=== PATIENT | female | born 2000 | race Caucasian/White ===

== ENCOUNTER 2019-10-24 07:54 | Inpatient (IN) | payer MEDICAID ==
[2019-10-23] MEDS: LACTATED RINGERS 1,000 ML IV SCH (09:00)
[~2019-10-24] VITALS: Ht 167.6 cm; Wt 83.9 kg
[2019-10-24] MEDS ORDERED: BUTORPHANOL TARTRATE 2 MG/ML VIAL IV PRN (09:15)
[2019-10-24] MEDS ORDERED: CARBOPROST TROMETHAMINE 250 MCG/ML AMPUL IM PRN (09:15)
[2019-10-24] MEDS ORDERED: LIDOCAINE HCL 1% 20ML VIAL (Pyxis) INJ INFIL SCH (09:15)
[2019-10-24] MEDS ORDERED: NALOXONE HCL 0.4 MG/ML 1ML VIAL IM PRN (09:15)
[2019-10-24] MEDS ORDERED: METHYLERGONOVINE MALEATE 0.2 MG/ML IM PRN (09:15)
[2019-10-24] MEDS ORDERED: MISOPROSTOL 100MCG TABLET VG SCH (09:15)
[2019-10-24 09:41] LABS: BASOPHILS % 0.1 % (0.0-2.0); CLARITY URINE CLOUDY (CLEAR); COLOR URINE YELLOW (YELLOW); EOSINOPHILS % 0.6 % (0.0-5.0); HEMATOCRIT. 34.2 % (36.0-48.0); HEMOGLOBIN. 11.8 g/dL (12.0-16.0); KETONES URINE NEGATIVE (NEGATIVE); LEUKOCYTE ESTERASE URINE 3+ (NEGATIVE); LYMPHOCYTES % 18.6 % (20.0-50.0); MEAN CORPUSCULAR HEMOGLOBIN 31.6 pg (28.0-32.0); MEAN CORPUSCULAR VOLUME 91.5 fL (81.0-99.0); MEAN PLATELET VOLUME 8.5 fl (7.4-10.4); NEUTROPHILS % 71.7 % (40.0-76.0); NITRITE URINE NEGATIVE (NEGATIVE); OCCULT BLOOD URINE NEGATIVE (NEGATIVE); PLATELET 220 x1000/uL (130-400); PROTEIN URINE 1+ (NEGATIVE); RED BLOOD CELL COUNT 3.73 mill/uL (4.2-5.4); RED CELL DISTRIBUTION WIDTH 13.5 % (11.6-14.6); SPECIFIC GRAVITY URINE 1.021 (1.005-1.030)
[2019-10-24] MEDS ORDERED: ROPIVACAINE HCL/PF EPIDURAL 200 ML EPI SCH (09:45)
[2019-10-24 09:57] LABS: *BARBITURATES SCREEN URINE NEGATIVE (NEGATIVE); *BENZODIAZEPINES SCREEN URINE NEGATIVE (NEGATIVE); *COCAINE SCREEN URINE NEGATIVE (NEGATIVE); METHADONE URINE SCREEN NEGATIVE (NEGATIVE); OPIATES URINE SCREEN NEGATIVE (NEGATIVE); PHENCYCLIDINE URINE SCREEN NEGATIVE (NEGATIVE)
[2019-10-24 09:58] LABS: *AMPHETAMINES SCREEN URINE NEGATIVE (NEGATIVE); CANNABINOID URINE SCREEN NEGATIVE (NEGATIVE)
[2019-10-24] MEDS: DEXT 5%/LR + PITOCIN 20UNITS/L 1,000 ML IV SCH (10:59)
[2019-10-24 11:28] LABS: INR 0.9; PARTIAL THROMBOPLASTIN TIME 24.5 sec (23.4-31.0); PROTHROMBIN TIME 9.6 sec (9.6-11.0)
[2019-10-24] MEDS: GUAIFENESIN/CODEINE 200-20MG/10ML UDC PO PRN ×2 (11:56→20:51)
[2019-10-24] MEDS: LACTATED RINGERS 1,000 ML IV SCH (21:00)
[2019-10-25] MEDS: LACTATED RINGERS 1,000 ML IV SCH (04:00)
[2019-10-25] MEDS: GUAIFENESIN/CODEINE 200-20MG/10ML UDC PO PRN (05:39)
[2019-10-25] MEDS ORDERED: ROPIVACAINE HCL/PF EPIDURAL 200 ML EPI ONE (08:18)
[2019-10-25] MEDS ORDERED: FENTANYL CITRATE/PF 50MCG/ML 2ML VIAL ONE (08:20)
[2019-10-25] MEDS ORDERED: DEXT 5%/LR + PITOCIN 20UNITS/L 1,000 ML IV SCH (11:57)
[2019-10-25] MEDS ORDERED: IBUPROFEN 400MG TABLET PO PRN (12:00)
[2019-10-25] MEDS ORDERED: HEMORRHOIDAL SUPP PR PRN (12:00)
[2019-10-25] MEDS ORDERED: BISACODYL 10MG SUPP PR PRN (12:00)
[2019-10-25] MEDS ORDERED: GLYCERIN/WITCH HAZEL LEAF MEDICATED PAD TOP PRN (12:00)
[2019-10-25] MEDS ORDERED: ACETAMINOPHEN WITH CODEINE 300/30MG TABLET PO PRN ×2 (12:00)
[2019-10-25] MEDS: DEXT 5%/LR + PITOCIN 20UNITS/L 1,000 ML IV SCH (12:52)
[2019-10-25 15:00] VITALS: BP 124/81
[2019-10-25] MEDS ORDERED: MVI, ADULT NO.1 10 ML in LACTATED RINGERS 1,000 ML IV SCH ×2 (15:00)
[2019-10-25] MEDS ORDERED: LIDOCAINE HCL 2%/EPINEPHRINE 1:100,000 20 ML VIAL INFIL ONE (16:02)
[2019-10-25 16:16] VITALS: BP 129/73
[2019-10-25 20:00] VITALS: BP 119/69
[2019-10-25] MEDS ORDERED: FLUCONAZOLE 150MG TABLET PO NR (20:00)
[2019-10-25] MEDS: OSELTAMIVIR 75MG CAPSULE PO SCH (20:56)
[2019-10-25] MEDS: SIMETHICONE 80MG TABLET CHEW PO SCH (20:58)
[2019-10-25] MEDS: DOCUSATE SODIUM 100MG CAPSULE PO SCH (20:59)
[2019-10-26 04:00] VITALS: BP 117/80
[2019-10-26 06:01] LABS: BASOPHILS % 0.1 % (0.0-2.0); EOSINOPHILS % 0.4 % (0.0-5.0); HEMATOCRIT. 30.3 % (36.0-48.0); HEMOGLOBIN. 10.3 g/dL (12.0-16.0); LYMPHOCYTES % 11.7 % (20.0-50.0); MEAN CORPUSCULAR HEMOGLOBIN 31.1 pg (28.0-32.0); MEAN CORPUSCULAR VOLUME 91.7 fL (81.0-99.0); MEAN PLATELET VOLUME 8.7 fl (7.4-10.4); MONOCYTES % 7.9 % (2.0-8.0); NEUTROPHILS % 79.9 % (40.0-76.0); PLATELET 180 x1000/uL (130-400); RED BLOOD CELL COUNT 3.31 mill/uL (4.2-5.4); RED CELL DISTRIBUTION WIDTH 13.5 % (11.6-14.6)
[2019-10-26] MEDS: MAGNESIUM/ALUMINUM HYDROXIDE/SIMETHICONE 30ML UDC PO SCH ×2 (07:30→20:41)
[2019-10-26] MEDS ORDERED: FERROUS SULFATE 325MG TABLET PO SCH (07:30)
[2019-10-26 08:00] VITALS: BP 116/76
[2019-10-26] MEDS: SIMETHICONE 80MG TABLET CHEW PO SCH ×2 (08:00→20:41)
[2019-10-26] MEDS ORDERED: PRENATAL VIT/FE FUMARATE/FA TABLET PO SCH (09:00)
[2019-10-26] MEDS: OSELTAMIVIR 75MG CAPSULE PO SCH ×2 (09:16→20:41)
[2019-10-26] MEDS: GUAIFENESIN/CODEINE 200-20MG/10ML UDC PO PRN (09:17)
[2019-10-26 16:12] VITALS: BP 118/77
[2019-10-26 19:30] VITALS: BP 134/90
[2019-10-26 20:26] LABS: HEPATITIS B SURFACE ANTIGEN NEGATIVE
[2019-10-26] MEDS: DOCUSATE SODIUM 100MG CAPSULE PO SCH (20:41)
[2019-10-27] MEDS ORDERED: IBUP-2028 PO (01:41)
[2019-10-27 03:56] VITALS: BP 118/70
[2019-10-27 08:00] VITALS: BP 124/84
== END 2019-10-27 10:50 | disposition home or self-care (01) | DRG 560 ==
LOC: EDBD 07:54 → 8 EST LDRP 07:54 → OBSVTOIN 07:54 → 8EST 10-25 14:15
PROVIDERS: ADMIT Obstetrics & Gynecology; ATTEND Obstetrics & Gynecology
PROC: 10E0XZZ Delivery of Products of Conception, External Approach (ICD-10-PCS; principal; 2019-10-25)
DX: O98.83 Other maternal infectious and parasitic diseases complicating the puerperium (principal); B37.89 Other sites of candidiasis; Z37.0 Single live birth; Z3A.40 40 weeks gestation of pregnancy
CPT/HCPCS: 36415; 80305; 81003; 85025; 86592; 86703; 86762; 86850; 86900; 87340; 87804; J0595; J2590; J2795; J3010; J3490; J7120

== ENCOUNTER 2021-07-30 13:42 | Observation (INO) | payer MEDICAID, OTHER ==
[~2021-07-30] VITALS: Ht 170.2 cm; Wt 78.5 kg
[~2021-07-30 13:42] MED LIST: IBUP-2028 PO
== END 2021-07-30 15:30 | disposition home or self-care (01) ==
LOC: 8 EST LDRP 13:42
PROVIDERS: ADMIT Obstetrics & Gynecology; ATTEND Obstetrics & Gynecology
DX: O62.9 Abnormality of forces of labor, unspecified (principal); Z3A.31 31 weeks gestation of pregnancy
CPT/HCPCS: 59025; G0378; 99281

== ENCOUNTER 2021-08-25 21:11 | Observation (INO) | payer MEDICAID ==
[~2021-08-25] VITALS: Ht 160 cm; Wt 58.1 kg
[2021-08-25] MEDS ORDERED: LACTATED RINGERS 1,000 ML IV SCH (23:30)
[2021-08-26] MEDS ORDERED: pnv (01:06)
== END 2021-08-26 01:25 | disposition home or self-care (01) ==
LOC: 8 EST LDRP 21:11
PROVIDERS: ADMIT Obstetrics & Gynecology; ATTEND Obstetrics & Gynecology
DX: O42.92 Full-term premature rupture of membranes, unspecified as to length of time between rupture and onset of labor (principal); Z3A.35 35 weeks gestation of pregnancy
CPT/HCPCS: 59025; 76815; 76818; 96360; G0378; 99281; G0379

== ENCOUNTER 2021-09-26 21:16 | Inpatient (IN) | payer MEDICAID ==
[~2021-09-26] VITALS: Ht 167.6 cm; Wt 77.6 kg
[~2021-09-26 21:16] MED LIST changes: -IBUP-2028 PO; +pnv
[2021-09-26] MEDS ORDERED: BUTORPHANOL TARTRATE 2 MG/ML VIAL IV PRN (22:45)
[2021-09-26] MEDS ORDERED: DEXT 5%/LR + PITOCIN 20UNITS/L 1,000 ML IV SCH (22:45)
[2021-09-26] MEDS ORDERED: MISOPROSTOL 100MCG TABLET VG SCH (22:45)
[2021-09-26] MEDS ORDERED: LIDOCAINE HCL 1% 20ML VIAL (Pyxis) INJ INFIL SCH (22:45)
[2021-09-26] MEDS ORDERED: CARBOPROST TROMETHAMINE 250 MCG/ML AMPUL IM PRN (22:45)
[2021-09-26 22:59] LABS: BASOPHILS % 0.4 % (0.0-2.0); EOSINOPHILS % 0.4 % (0.0-5.0); HEMATOCRIT. 36.2 % (36.0-48.0); HEMOGLOBIN. 12.4 g/dL (12.0-16.0); LYMPHOCYTES % 19.1 % (20.0-50.0); MEAN CORPUSCULAR HEMOGLOBIN 31.8 pg (28.0-32.0); MEAN CORPUSCULAR VOLUME 92.5 fL (81.0-99.0); MEAN PLATELET VOLUME 8.4 fl (7.4-10.4); NEUTROPHILS % 71.1 % (40.0-76.0); PLATELET 254 x1000/uL (130-400); RED BLOOD CELL COUNT 3.91 mill/uL (4.2-5.4); RED CELL DISTRIBUTION WIDTH 13.1 % (11.6-14.6)
[2021-09-26 23:01] LABS: CLARITY URINE CLEAR (CLEAR); COLOR URINE DK YELLOW (YELLOW); KETONES URINE TRACE (NEGATIVE); LEUKOCYTE ESTERASE URINE NEGATIVE (NEGATIVE); NITRITE URINE NEGATIVE (NEGATIVE); OCCULT BLOOD URINE NEGATIVE (NEGATIVE); PROTEIN URINE NEGATIVE (NEGATIVE); SPECIFIC GRAVITY URINE 1.027 (1.005-1.030)
[2021-09-26 23:11] LABS: INR 0.9; PARTIAL THROMBOPLASTIN TIME 25.4 sec (23.4-31.0); PROTHROMBIN TIME 9.8 sec (9.6-11.0)
[2021-09-26 23:18] LABS: *AMPHETAMINES SCREEN URINE NEGATIVE (NEGATIVE); *BARBITURATES SCREEN URINE NEGATIVE (NEGATIVE); *BENZODIAZEPINES SCREEN URINE NEGATIVE (NEGATIVE); *COCAINE SCREEN URINE NEGATIVE (NEGATIVE)
[2021-09-26 23:19] LABS: CANNABINOID URINE SCREEN NEGATIVE (NEGATIVE); METHADONE URINE SCREEN NEGATIVE (NEGATIVE); OPIATES URINE SCREEN NEGATIVE (NEGATIVE); PHENCYCLIDINE URINE SCREEN NEGATIVE (NEGATIVE)
[2021-09-26] MEDS: LACTATED RINGERS 1,000 ML IV SCH (23:28)
[2021-09-27 00:06] LABS: HEPATITIS B SURFACE ANTIGEN NEGATIVE
[2021-09-27] MEDS ORDERED: ROPIVACAINE HCL/PF EPIDURAL 200 ML EPI SCH (00:15)
[2021-09-27] MEDS ORDERED: FENTANYL CITRATE/PF 50MCG/ML 2ML VIAL ONE (00:21)
[2021-09-27] MEDS ORDERED: ROPIVACAINE HCL/PF 100ML 100 ML ONE (00:22)
[2021-09-27] MEDS: LACTATED RINGERS 1,000 ML IV SCH (00:42)
[2021-09-27] MEDS ORDERED: BENZOCAINE/LANOLIN/ALOE VERA SPRAY TOP PRN (05:00)
[2021-09-27] MEDS ORDERED: HEMORRHOIDAL SUPP PR PRN (05:00)
[2021-09-27] MEDS ORDERED: GLYCERIN/WITCH HAZEL LEAF MEDICATED PAD TOP PRN (05:00)
[2021-09-27] MEDS ORDERED: ACETAMINOPHEN WITH CODEINE 300/30MG TABLET PO PRN (05:00)
[2021-09-27] MEDS ORDERED: IBUPROFEN 400MG TABLET PO PRN (05:00)
[2021-09-27] MEDS ORDERED: RHO(D) IMMUNE GLOBULIN 300 MCG/SYR IM PRN (05:00)
[2021-09-27] MEDS ORDERED: DIPHENHYDRAMINE 25MG CAPSULE PO PRN (05:00)
[2021-09-27] MEDS ORDERED: METHYLERGONOVINE MALEATE 0.2 MG/ML IM PRN (05:00)
[2021-09-27] MEDS ORDERED: BISACODYL 10MG SUPP PR PRN (05:00)
[2021-09-27] MEDS ORDERED: DEXT 5%/LR + PITOCIN 20UNITS/L 1,000 ML IV SCH (05:00)
[2021-09-27] MEDS ORDERED: LANOLIN OINT 7GM TUBE TOP PRN (05:00)
[2021-09-27] MEDS ORDERED: MISOPROSTOL 200MCG TABLET VG SCH (05:15)
[2021-09-27 05:45] VITALS: BP 121/67
[2021-09-27 06:30] VITALS: BP 124/66
[2021-09-27] MEDS ORDERED: EPHEDRINE SULFATE 50MG/ML VIAL ONE (07:58)
[2021-09-27] MEDS ORDERED: LIDOCAINE HCL 2%/EPINEPHRINE 1:100,000 20 ML VIAL INFIL ONE (07:58)
[2021-09-27 08:00] VITALS: BP 114/71
[2021-09-27] MEDS ORDERED: METHYLERGONOVINE MALEATE 0.2MG TABLET PO SCH (09:00)
[2021-09-27] MEDS: SIMETHICONE 80MG TABLET CHEW PO SCH ×3 (09:00→23:23)
[2021-09-27] MEDS: PRENATAL VIT/FE FUMARATE/FA TABLET PO SCH (09:00)
[2021-09-27] MEDS: MAGNESIUM/ALUMINUM HYDROXIDE/SIMETHICONE 30ML UDC PO SCH ×3 (09:00→23:23)
[2021-09-27 16:00] VITALS: BP 105/61
[2021-09-27 20:00] VITALS: BP 112/61
[2021-09-27] MEDS ORDERED: DOCUSATE SODIUM 100MG CAPSULE PO SCH (21:00)
[2021-09-27] MEDS: IBUPROFEN 800MG TABLET PO PRN (23:24)
[2021-09-28 04:30] VITALS: BP 109/77
[2021-09-28] MEDS: IBUPROFEN 800MG TABLET PO PRN (05:33)
[2021-09-28] MEDS ORDERED: CHOL400D7 PO (06:38)
[2021-09-28] MEDS ORDERED: ZINC50TA69 MT (06:38)
[2021-09-28] MEDS ORDERED: ASCO-339 MT (06:38)
[2021-09-28 08:00] VITALS: BP 111/57
[2021-09-28] MEDS ORDERED: FERROUS SULFATE 325MG TABLET PO SCH (09:00)
[2021-09-28] MEDS: MAGNESIUM/ALUMINUM HYDROXIDE/SIMETHICONE 30ML UDC PO SCH (09:00)
[2021-09-28] MEDS: PRENATAL VIT/FE FUMARATE/FA TABLET PO SCH (09:00)
[2021-09-28] MEDS: SIMETHICONE 80MG TABLET CHEW PO SCH (09:00)
[2021-09-28 12:35] LABS: BASOPHILS % 0.1 % (0.0-2.0); EOSINOPHILS % 0.6 % (0.0-5.0); HEMATOCRIT. 32.8 % (36.0-48.0); HEMOGLOBIN. 11.1 g/dL (12.0-16.0); LYMPHOCYTES % 16.3 % (20.0-50.0); MEAN CORPUSCULAR HEMOGLOBIN 31.6 pg (28.0-32.0); MEAN CORPUSCULAR VOLUME 93.5 fL (81.0-99.0); MEAN PLATELET VOLUME 8.1 fl (7.4-10.4); MONOCYTES % 8.4 % (2.0-8.0); NEUTROPHILS % 74.6 % (40.0-76.0); PLATELET 199 x1000/uL (130-400); RED BLOOD CELL COUNT 3.51 mill/uL (4.2-5.4)
== END 2021-09-28 15:10 | disposition home or self-care (01) | DRG 560 ==
LOC: 8 EST LDRP 21:16 → OBSVTOIN 22:21 → 8 EST LDRP 09-27 12:08
PROVIDERS: ADMIT Obstetrics & Gynecology; ATTEND Obstetrics & Gynecology
PROC: 10D07Z6 Extraction of Products of Conception, Vacuum, Via Natural or Artificial Opening (ICD-10-PCS; principal; 2021-09-27)
DX: O98.52 Other viral diseases complicating childbirth (principal); Z37.0 Single live birth; U07.1 COVID-19; O77.0 Labor and delivery complicated by meconium in amniotic fluid; Z3A.39 39 weeks gestation of pregnancy
CPT/HCPCS: 36415; 80305; 81003; 85025; 86592; 86703; 86762; 86850; 86900; 87340; 87426; 99281; G0378; J2590; J2795; J3010; J3490

== ENCOUNTER 2025-07-03 18:12 | Emergency (ER) | payer MEDICAID ==
[~2025-07-03] VITALS: Ht 175.3 cm; Wt 64.0 kg
[~2025-07-03 18:12] MED LIST changes: +ASCO-339 MT; +CHOL400D7 PO; +ZINC50TA69 MT
[2025-07-03 18:17] VITALS: O2SAT 99
[2025-07-03 19:05] LABS: BASOPHILS % 0.4 % (0.0-2.0); EOSINOPHILS % 1.4 % (0.0-5.0); HEMATOCRIT. 38.5 % (36.0-48.0); HEMOGLOBIN. 12.8 g/dL (12.0-16.0); LYMPHOCYTES % 26.9 % (20.0-50.0); MEAN PLATELET VOLUME 7.9 fl (7.4-10.4); MONOCYTES % 7.5 % (2.0-8.0); NEUTROPHILS % 63.8 % (40.0-76.0); PLATELET 233 x1000/uL (130-400); RED BLOOD CELL COUNT 4.07 mill/uL (4.2-5.4); RED CELL DISTRIBUTION WIDTH 12.6 % (11.6-14.6)
[2025-07-03 19:16] LABS: CREATININE 0.7 mg/dL (0.6-1.0); UREA NITROGEN BLOOD 8 mg/dL (9-23)
[2025-07-03 19:20] LABS: HCG SCREEN NEGATIVE
[2025-07-03 20:45] VITALS: TEMP 37.1
[2025-07-03] MEDS: MORPHINE SULFATE 2 MG/ML INJ (NOT FOR IM USE) IV ONE (21:40)
[2025-07-03] MEDS: SODIUM CHLORIDE 0.9% 500 ML IV ONE (21:41)
[2025-07-03 21:58] VITALS: BP 101/69; PULSE 84; RESP 18; O2SAT 99
== END 2025-07-03 22:28 | disposition short-term general hospital (02) ==
LOC: ER 18:12 → EDBEDREQ 20:17 → EDBEDREQTM 20:17 → ER 22:28 → CMPBEDREQ 07-05 07:21
DX: R56.9 Unspecified convulsions (principal); F41.9 Anxiety disorder, unspecified; Z55.6 Problems related to health literacy; Z87.820 Personal history of traumatic brain injury
CPT/HCPCS: 80048; 80320; 84703; 85025; 36415; 70450; 96374; 99285; J2270; J7040; G0480